=== PATIENT | male | born 1960 | race Caucasian/White ===

== ENCOUNTER 2021-10-19 22:33 | Emergency (ER) | payer OTHER ==
[~2021-10-19] VITALS: Ht 172.7 cm; Wt 83.9 kg
--- NOTE | 2021-10-19 22:57 | NUR ---
PATIENT WAS MSE BY DR LAND IN ROOM 04A.
[2021-10-19] MEDS ORDERED: IV NORMAL SALINE 1000 ML BAG IV ONE (23:00)
[2021-10-19] MEDS ORDERED: MECLIZINE HCL 25 MG TABLET PO ONE (23:00)
[2021-10-19] MEDS ORDERED: ONDANSETRON 4 MG/2 ML VIAL IV ONE (23:00)
[2021-10-19] MEDS ORDERED: ONDANSETRON 4 MG/2 ML VIAL ONE (23:11)
[2021-10-19] MEDS ORDERED: MECLIZINE HCL 25 MG TABLET ONE (23:11)
[2021-10-20 00:04] LABS: HEMATOCRIT 41.5 % (36.7-47.1); MEAN CORPUSCULAR VOLUME 88.6 fL (73.0-96.2)
[2021-10-20 00:05] LABS: MEAN CORPUSCULAR HEMOGLOBIN 30.2 uug (23.8-33.4); PLATELET COUNT (AUTO) 307 K/uL (152-348)
[2021-10-20 01:07] LABS: CREATININE 1.1 mg/dL (0.6-1.3); POTASSIUM 3.5 mmol/L (3.5-5.1)
[2021-10-20 01:08] LABS: BILIRUBIN,DIRECT 0.2 mg/dL (0.0-0.2); BILIRUBIN,TOTAL 0.8 mg/dL (0.2-1.0); TOTAL PROTEIN, SERUM 7.8 g/dL (6.4-8.2)
[2021-10-20 03:24] LABS: *CLARITY,URINE CLEAR (CLEAR); *COLOR,URINE STRAW (YELLOW)
[2021-10-20 03:25] LABS: *BILIRUBIN,URIN NEGATIVE (NEGATIVE); *BLOOD, URINE NEGATIVE (NEGATIVE); *KETONES,URINE NEGATIVE (NEGATIVE); *UROBILINOGEN,URINE 0.2 E.U./dl (NORMAL); PH,URINE 6.5 (5.0-8.0); UGLUCOSE NEGATIVE (NEGATIVE)
[2021-10-20 03:26] LABS: LEUKOCYTE ESTERASE ,URINE NEGATIVE (NEGATIVE); NITRITE, URINE NEGATIVE (NEGATIVE)
--- NOTE | 2021-10-20 04:25 | NUR ---
DR LAND SPOKE WITH PATIENT MADE AWARE OF TEST RESULTS.
[2021-10-20] MEDS ORDERED: ONDA4TAB11 PO (04:30)
[2021-10-20] MEDS ORDERED: MECL-159 PO (04:30)
--- NOTE | 2021-10-20 04:30 | NUR ---
Patient discharged to home in stable condition. Written and verbal after care instructions given. Patient verbalizes understanding of instructions. Stressed follow up or return to ER for worsening s/s.
[2021-10-20 04:35] VITALS: BP 133/78
== END 2021-10-20 04:35 | disposition home or self-care (01) ==
LOC: ER 22:40
DX: R42 Dizziness and giddiness (principal); R11.10 Vomiting, unspecified; Z20.822 Contact with and (suspected) exposure to COVID-19
CPT/HCPCS: 36415; 70450; 80048; 80076; 81003; 84484; 85025; 85730; 87426; 93005; 96361; 96374; 99285; J2405; 70030-TC; A4663; J7030; J8597